=== PATIENT | male | born 1965 | race Asian ===

== ENCOUNTER 2016-05-13 12:31 | Outpatient (CLI) | payer OTHER ==
[~2016-05-13 12:31] MED LIST: CLONIDINE0.1 MG PO; FURO40TA93 PO; HYDR-3182 PO; LEVEMIR SC; LISI20TA31 PO; NOVOLOG MIX 70/30 SC; ONDA4TAB3 PO; SPIR25TA66 PO; SPIRONOLACT25 MG PO; VIGAMOX0.5 % OP
== END 2016-05-13 19:09 | disposition home or self-care (01) ==
LOC: LAB 12:31
DX: I48.91 Unspecified atrial fibrillation (principal)
CPT/HCPCS: 85610

== ENCOUNTER 2018-05-03 11:04 | Outpatient (CLI) | payer OTHER | END 2018-05-03 19:30 | disposition home or self-care (01) | LOC: LABW 11:04 | DX: N40.0 Benign prostatic hyperplasia without lower urinary tract symptoms (principal); R53.83 Other fatigue | CPT/HCPCS: 36415; 84153; 84402; 84403 ==

== ENCOUNTER 2018-09-18 10:59 | Emergency (ER) | payer OTHER ==
[~2018-09-18] VITALS: Ht 182.9 cm; Wt 77.1 kg
[2018-09-18 11:03] VITALS: TEMP 98.1
[2018-09-18 11:46] LABS: PLATELET COUNT 160 K/uL (142-355)
[2018-09-18 11:58] LABS: POTASSIUM 3.9 mmol/L (3.6-5.2)
[2018-09-18 13:00] VITALS: BP 153/91
== END 2018-09-18 13:05 | disposition home or self-care (01) ==
LOC: ED 10:59
PROVIDERS: Student in an Organized Health Care Education/Training Program
DX: T59.811A Toxic effect of smoke, accidental (unintentional), initial encounter (principal); J68.0 Bronchitis and pneumonitis due to chemicals, gases, fumes and vapors; Z99.2 Dependence on renal dialysis; H54.7 Unspecified visual loss; Y92.89 Other specified places as the place of occurrence of the external cause
CPT/HCPCS: 36415; 80048; 85027; 93005; 94664; 96374; 99283; 99284; J2930